=== PATIENT | female | born 1980 ===

== ENCOUNTER 2023-01-08 21:19 | Emergency (ER) | payer SELFPAY ==
[2023-01-08] MEDS ORDERED: DIPHENHYDRAMINE 50 MG/ML VIAL ONE (21:36)
[2023-01-08] MEDS ORDERED: dexAMETHasone 10 MG/ML VIAL ONE (21:36)
[2023-01-08] MEDS ORDERED: FAMOTIDINE 20 MG/2 ML VIAL IV ONE (21:36)
--- NOTE | 2023-01-08 22:25 | EDPHYS ---
Physician Documentation [facility] Name: Heather Sullivan Age: 43 yrs Sex: Female : 1980 Arrival Date: 01/08/2023 Time: 21:19 Bed 8 Private MD: ED Physician Bear Bledsoe Historical: - Allergies: 01/08 21:25 No Known Allergies; kd3 - Immunization history:: Adult Immunizations up to date. - Social history:: Smoking status: Patient reports the use of cigarette tobacco products, smokes one pack cigarettes per day. ROS: 22:32 Constitutional: Negative for fever, chills, and weight loss. kb 22:32 Respiratory: Positive for shortness of breath. 22:32 Skin: Positive for swelling. 22:32 All other systems are negative. Vital Signs: 21:21 BP 119 / 73; Pulse 94; Resp 21; Temp 97.6(O); Pulse Ox 97% on R/A; Weight 54.43 kg; kd3 Height 4 ft. 11 in. ; 21:55 BP 104 / 67; Pulse 100; Resp 16; Pulse Ox 97% on R/A; kl 22:31 BP 120 / 90; Pulse 88; Resp 18; Temp 97(TE); Pulse Ox 97% on R/A; kl 21:21 Body Mass Index 24.24 (54.43 kg, 149.86 cm) kd3 MDM: 21:29 Patient medically screened. kb 22:30 Counseling: I had a detailed discussion with the patient and/or guardian regarding: the kb historical points, exam findings, and any diagnostic results supporting the discharge/admit diagnosis, the need for outpatient follow up, a family practitioner, to return to the emergency department if symptoms worsen or persist or if there are any questions or concerns that arise at home. ED course: Pt states she is feeling better and wants to leave. Educated that I would like to monitor her for a few hours since she received epinephrin from EMS. Pt states she doesn't want to stay that long and would like to sign herself out. Pt educated on return precautions. Verbal understanding received. . 22:32 Differential diagnosis: anaphylaxis, angioedema, urticaria. Data reviewed: vital signs, kb nurses notes. Historians other than the Patient: EMS: [facility]. Administered Medications: 21:25 Drug: Decadron - Dexamethasone IVP 10 mg Route: IVP; Site: right antecubital; kl 21:30 Drug: Famotidine IVP 10 mg Route: IVP; Site: right antecubital; kl 21:34 Drug: diphenhydrAMINE IVP 25 mg Route: IVP; Site: right antecubital; kl Disposition: 01/09 01:29 Co-signature as Attending Physician, Bear Bledsoe MD I agree with the assessment sp4 and plan of care. I reviewed the patient's care provided by the Advanced Practice Provider and agree with the diagnosis and treatment plan. Disposition Summary: 01/08/23 22:24 Discharge Ordered Location: Home kb Condition: Stable kb Diagnosis - Bee allergy status kb Followup: kb - With: Emergency Department - When: As needed - Reason: Worsening of condition Followup: kb - With: Private Physician - When: 2 - 3 days - Reason: Recheck today's complaints, Continuance of care, Re-evaluation by your physician Discharge Instructions: - Discharge Summary Sheet kb - Bee, Wasp, or Hornet Sting, Adult kb - Allergies, Adult, [id number] kb Forms: - Medication Reconciliation Form kb - Thank You Letter kb - Antibiotic Education kb - Prescription Opioid Use kb - [email or web address] kb Prescriptions: - Pepcid 20 mg Oral Tablet - take 1 tablet by ORAL route every 12 hours for 5 days; 10 tablet; Refills: 0, kb Product Selection Permitted - Prednisone 20 mg Oral Tablet - take 1 tablet by ORAL route once daily for 5 days; 5 tablet; Refills: 0, kb Product Selection Permitted Signatures: Shanna Workman FNP-C FNP-Vicki Neff RN Stanislaw Mccarty RN RN as6 Carmen Ahn RN RN kd3 Bear Bledsoe MD MD sp4
--- NOTE | 2023-01-08 22:25 | ER ---
Nurse's Notes [facility] Name: Heather Sullivan Age: 43 yrs Sex: Female : 1980 Arrival Date: 01/08/2023 Time: 21:19 Bed 8 Private MD: Diagnosis: Bee allergy status Presentation: 01/08 21:21 Chief complaint: EMS states: She was stung by a bee on her left ring finger and started kd3 to swell on her face. We gave her am A\T\A treatment, 25 of Benadryl, 4 of Zofran, and .4 of epi IM. She reports feeling better. Lung sounds are clear bilaterally. She says that she had been stung by a bee before and didn't react like this. Coronavirus screen: Vaccine status: Patient reports being unvaccinated. Ebola Screen: No symptoms or risks identified at this time. Initial Sepsis Screen: Does the patient meet any 2 criteria? No. Patient's initial sepsis screen is negative. Does the patient have a suspected source of infection? No. Patient's initial sepsis screen is negative. Risk Assessment: Do you want to hurt yourself or someone else? Patient reports no desire to harm self or others. Onset of symptoms was January 08, 2023. 21:21 Method Of Arrival: EMS: [facility] kd3 21:25 Acuity: LENNIE 3 kd3 Triage Assessment: 21:25 General: Appears uncomfortable, Behavior is cooperative, anxious. Pain: Denies pain. kd3 Neuro: Level of Consciousness is awake, alert, obeys commands, Oriented to person, place, time, situation. Cardiovascular: Patient's skin is warm and dry. Respiratory: Breath sounds are clear bilaterally. Musculoskeletal: Swelling present in right eye, left eye and mouth. Historical: - Allergies: 21:25 No Known Allergies; kd3 - Immunization history:: Adult Immunizations up to date. - Social history:: Smoking status: Patient reports the use of cigarette tobacco products, smokes one pack cigarettes per day. Screenin:56 [facility] ED Fall Risk Assessment (Adult) History of falling in the last 3 months, kl including since admission No falls in past 3 months (0 pts) Confusion or Disorientation No (0 pts) Intoxicated or Sedated No (0 pts) Impaired Gait No (0 pts) Mobility Assist Device Used No (0 pt) Altered Elimination No (0 pt) Score/Fall Risk Level 0 - 2 = Low Risk Oriented to surroundings, Maintained a safe environment. Abuse screen: Denies threats or abuse. Nutritional screening: No deficits noted. Tuberculosis screening: No symptoms or risk factors identified. Assessment: 21:55 Reassessment: Patient appears in no apparent distress at this time. Patient states kl feeling better. Patient states symptoms have improved. Respiratory: Airway is patent Trachea midline Respiratory effort is even, unlabored. EENT: swelling to lips and eye lids subsiding. 22:32 Reassessment: Patient appears in no apparent distress at this time. Patient states kl feeling better. Patient states symptoms have improved. Vital Signs: 21:21 BP 119 / 73; Pulse 94; Resp 21; Temp 97.6(O); Pulse Ox 97% on R/A; Weight 54.43 kg; kd3 Height 4 ft. 11 in. ; 21:55 BP 104 / 67; Pulse 100; Resp 16; Pulse Ox 97% on R/A; kl 22:31 BP 120 / 90; Pulse 88; Resp 18; Temp 97(TE); Pulse Ox 97% on R/A; kl 21:21 Body Mass Index 24.24 (54.43 kg, 149.86 cm) kd3 ED Course: 21:20 Patient arrived in ED. as6 21:21 Carmen Ahn, RN is Primary Nurse. kd3 21:25 Triage completed. kd3 21:25 Arm band placed on right wrist. kd3 21:29 Shanna Workman FNP-C [facility]. kb 21:29 Bear Bledsoe MD is Attending Physician. kb 21:56 Maintain EMS IV. Dressing intact. Good blood return noted. Site clean \T\ dry. Gauge \T\ kl site: 20 gauge right ac. 22:32 Patient has correct armband on for positive identification. kl 22:32 No provider procedures requiring assistance completed. IV discontinued, intact, kl bleeding controlled, No redness/swelling at site. Pressure dressing applied. Administered Medications: 21:25 Drug: Decadron - Dexamethasone IVP 10 mg Route: IVP; Site: right antecubital; kl 21:30 Drug: Famotidine IVP 10 mg Route: IVP; Site: right antecubital; kl 21:34 Drug: diphenhydrAMINE IVP 25 mg Route: IVP; Site: right antecubital; Medication: 22:32 VIS not applicable for this client. kl Outcome: 22:24 Discharge ordered by . jhoana 22:32 Discharged to home ambulatory, with friend. kl 22:32 Condition: improved 22:32 Discharge instructions given to patient, Instructed on discharge instructions, follow up and referral plans. medication usage, Demonstrated understanding of instructions, follow-up care, medications, Prescriptions given X 2. 22:33 Patient left the ED. Signatures: Shanna Workman, MANAGER STUDIO-C MANAGER STUDIO-CkVicki Cedeno, RN RN Stanislaw Weinstein RN RN as6 Carmen Ahn RN RN kd3
[2023-01-08 22:37] VITALS: O2SAT 97
[2023-01-08 22:41] VITALS: BP 120/90; TEMP 97
== END 2023-01-08 22:33 | disposition home or self-care (01) ==
LOC: ER 21:19
DX: R06.02 Shortness of breath (principal); Z91.030 Bee allergy status; F17.210 Nicotine dependence, cigarettes, uncomplicated
CPT/HCPCS: 96374; 96375; 99284; J1100; J1200